=== PATIENT | male | born 1965 | race Caucasian/White ===

== ENCOUNTER 2016-12-11 08:43 | Emergency (ER) | payer MEDICAID ==
[2011-05-09 02:48] VITALS: BMI 22.2
== END 2016-12-11 11:07 | disposition home or self-care (01) ==
LOC: D.ER 08:43
DX: S40.011A Contusion of right shoulder, initial encounter (principal); Y04.2XXA Assault by strike against or bumped into by another person, initial encounter; Y93.89 Activity, other specified; Y92.89 Other specified places as the place of occurrence of the external cause